=== PATIENT | female | born 1945 | race Caucasian/White ===

== ENCOUNTER → 2024-07-07 12:56 | Outpatient (REF) | payer MEDICARE, BC, SELFPAY | LOC: HWRCS 12:56 | PROVIDERS: ATTENDING PHYSICIAN Internal Medicine Cardiovascular Disease; FAMILY PHYSICIAN Family Medicine | DX: I48.0 Paroxysmal atrial fibrillation (principal) | CPT/HCPCS: 93306 ==

== ENCOUNTER 2025-06-13 14:12 | Inpatient (IN) | payer MEDICARE, BC, SELFPAY ==
[2025-06-10 19:04] LABS: Hematocrit 38.9 % (37.0-47.0); Hemoglobin 12.2 g/dL (12.0-16.0); Mean Corp Hgb Conc. 31.4 g/dL (33.0-37.0); Mean Corpuscular Volume 82.2 fL (81.0-99.0); Nucleated Red Blood Cells % 0 %; Platelet Count 237 10^3/uL (130-400); Red Cell Dist. Width 13.2 % (11.5-14.5)
[2025-06-10 19:20] LABS: ALT (SGPT) 10 U/L (0-35); AST (SGOT) 19 U/L (14-36); Albumin 4.0 g/dl (3.5-5.0); Alkaline Phosphatase 67 U/L (38-126); Blood Urea Nitrogen 26 mg/dl (7-17); Calcium 9.6 mg/dl (8.4-10.2); Carbon Dioxide 31 mmol/L (22-30); Chloride 101 mmol/L (98-107); Glucose 112 mg/dl (70-99); Potassium 4.3 mmol/L (3.5-5.1); Sodium 136 mmol/L (135-145); Total Protein 7.3 g/dl (6.3-8.2); eGFR > 60.00
--- NOTE | 2025-06-10 19:28 | ED.GENMED ---
History of Present Illness
General
Chief Complaint: Musculo-Skeletal Complaint
Source: patient
Exam Limitations: none
Time Seen by Provider: 06/10/25 17:08
Nursing documentation reviewed up to this point in time: agreed with
History of Present Illness
History of Present Illness:
79-year-old female past medical history of A-fib currently on Eliquis, diabetes presenting to the emergency department today with concerns of right knee pain right leg pain has been progressive over the past few but specifically over the past few
days. Has had weakness and difficulty ambulating over the past few years and has had difficulty ambulating while living at home by herself during that time. She has not been able to ambulate whatsoever today due to her knee issue and ongoing lower
extremity weakness.
Past History
Past History
ED Past Medical History: Arrthythmia (Atrial fib), GERD, HTN, Hypercholesterolemia, NIDDM, Hypothyroidism, Psychiatric (Depression) and Other (Hiatal hernia)
ED Past Surgical History: (X 2), Gynecological (D&C), Orthopedic (Right knee surgery, ) and Other (Umbilical hernia, Right breast biopsy, )
Social History
Tobacco: Former smoker
Alcohol: Occasional
Personal:
Living: alone
Review of Systems
Review of Systems
Allergies reviewed?: Yes
All Other Systems: ROS reviewed and negative except as documented in HPI and ROS
Phy Exam
Physical Exam
Physical Exam:
GENERAL: Alert , in no apparent distress
EYE: pupils equal and reactive
NECK: Supple, no significant adenopathy.
ENT: o/p clr, mmm.
CARDIAC: Regular rate and rhythm .
LUNGS: Clear breath sounds bilaterally, no acute respiratory distress, no wheezes/rales/rhonchi
ABDOMEN: Soft, without focal tenderness, no r/g, no cvat
NEUROLOGICAL: Alert and oriented, no focal neuro deficits able to move lower extremities. Difficulty moving against resistance of the lower extremities bilaterally. Normal sensation.
SKIN: Warm and dry, skin intact.
MUSCULOSKELETAL: Mild pain to the area to the lateral posterior aspect of the right knee without overlying skin changes no redness or warmth. No edema, well perfused.
PSYCH: Normal and appropriate interaction.
Course
Orders/Labs/Results
Orders:
Orders
06/10/25 15:45
US Legs, Right [US Periph Venous LOWER Ext RT] Urgent
Comment:
Reason For Exam: pain
06/10/25 18:47
CR Knee- Right 4 Or More View* Urgent
Comment:
Reason For Exam: knee pain
06/10/25 18:51
CBC/With Diff [Complete Blood Count/With Diff] Urgent
CMP [Comprehensive Metabolic Panel] Urgent
Abnormal Lab Results
06/10/25
18:51
MCH 25.8 L pg
(27.0-31.0)
MCHC 31.4 L g/dL
(33.0-37.0)
Absolute Lymphs (auto) 1.0 L 10^3/uL
(1.2-3.4)
Neutrophils % 75.6 H %
(42.2-75.2)
Lymphocytes % 16.7 L %
(20.5-51.1)
Carbon Dioxide 31 H mmol/L
(22-30)
BUN 26 H mg/dl
(7-17)
Glucose 112 H mg/dl
(70-99)
06/10/25 18:51
06/10/25 18:51
Vital Signs
Initial and Last Documented VS:
Initial Vital Signs
Temp Pulse Resp Pulse Ox
97.9 F 60 20 97
06/10/25 15:39 06/10/25 15:39 06/10/25 15:39 06/10/25 15:39
Last Documented Vital Signs
Temp Pulse Resp Pulse Ox
97.9 F 60 20 97
06/10/25 15:39 06/10/25 15:39 06/10/25 15:39 06/10/25 19:30
MDM/Problems Addressed
MDM/Problems Addressed:
79-year-old female presenting to the emergency department today with concerns of increasing difficulty with ambulation unable to ambulate whatsoever at home does live by herself. Typically gets around on a scooter. Also is having worsening pain to
the right posterior knee. Here no redness or warmth able to move at the knee joint. Labs unremarkable no evidence of infection ultrasound without evidence of blood clot. Considering the patient is unable to ambulate safely for discharge home plan
to admit for PT assessment and case management consult.
*Pulse Oximetry
SaO2: 97
Oxygen Mode of Delivery: Room air
Patient hypoxic: no (97)
*Critical Care Note
Total Time (30-74mins, 75-104mins- exclusive of procedures): Not Applicable
ED Attending Note
-
Portions of this chart may have been created with voice recognition software.� Occasional wrong word or��sound alike� substitutions may have occurred due to the inherent limitations of voice recognition software.
Discharge Plan
Departure
Patient Disposition: Admit
Date of Disposition: 06/10/25
Time of Disposition: 19:49
Admit to: Med/Surg
Admit to doctor: Bobbi
Presentation/result/management discussed w/ accepting MD/DO: Hospitalist
Patient with high blood pressure during this ER visit?: No
Condition: Good
Covid-19: Not Applicable
Discharge Problem:
Acute knee pain, Ambulatory dysfunction
Prescriptions:
No Action
sertraline 100 mg Tablet
100 mg PO DAILY
coenzyme Q10 50 mg capsule
50 mg PO DAILY
levothyroxine 125 mcg Tablet
125 mcg PO DAILY
nitrofurantoin macrocrystal 100 mg capsule
100 mg PO BID
lovastatin 20 mg Tablet
20 mg PO QPM
oxybutynin chloride 5 mg Tablet
5 mg PO BID
Linzess 145 mcg Capsule
145 mcg PO DAILY
Eliquis 5 mg Tablet
5 mg PO BID
PreserVision AREDS-2 250-90-40-1 mg Capsule
1 tab PO DAILY
lidocaine [Aspercreme (lidocaine)] 4 % Adhesive Patch,Medicated
1 patch topical DAILY Qty: 0 0RF
Insulin Glargine Lantus [Lantus] 15 UNITS
Subcutaneous Insulin Syringe [Syringe-Insulin] 0 UNIT
As Directed mls/hr SC DAILY
Ordered By: Rodo Fleming MD
Last Taken: Unknown
insulin aspart U-100 [Novolog FlexPen U-100 Insulin] 100 unit/mL (3 mL) Insulin Pen
3 units SC AC Qty: 0 0RF
sennosides [senna] 8.6 mg Tablet
17.2 mg PO BID Qty: 0 0RF
metoprolol succinate 25 mg Tablet Extended Release 24 Hr
25 mg PO DAILY Qty: 0 0RF
acetaminophen [Pain Reliever ES(acetaminophn)] 500 mg Tablet
1,000 mg PO Q8H Qty: 0 0RF
lisinopril 20 mg Tablet
20 mg PO DAILY Qty: 0 0RF
docusate sodium 100 mg Capsule
100 mg PO BID Qty: 0 0RF
mirtazapine 7.5 mg Tablet
7.5 mg PO HS Qty: 0 0RF
pantoprazole 40 mg Tablet,Delayed Release (Dr/Ec)
40 mg PO BID Qty: 0 0RF
polyethylene glycol 3350 [Miralax] 17 gram powder in packet
17 g PO DAILY Qty: 14 0RF
Referrals:
David Preston DO [Family Provider, Family Practice]
Interventions
Interventions:
*Risk Screen - Suicide Last Done: 06/10/25 15:39
*General Assessment Last Done: 06/10/25 15:39
*Neglect/Abuse Screening Last Done: 06/10/25 15:39
ED-Musculoskeletal Assessment Last Done: 06/10/25 16:40
Discharge Date and Time
Print Language: SERBIAN
--- NOTE | 2025-06-10 19:53 | HPS.HSE ---
Addendum entered and electronically signed by Rhiannon Perkins MD 06/10/25 21:03:
This is an addendum to H&P written by Hermelinda Hercules on 06/10/2025. �Patient seen and examined independently with FREIGHT ROUTER.
79-year-old female past medical history of paroxysmal atrial fibrillation, obstructive sleep apnea, hypothyroidism, diabetes, chronic constipation, hypertension, hyperlipidemia, depression, hearing impairment, obesity, presenting with right knee
pain and right leg pain progressive after past few days. �Weakness and difficulty ambulating.
Labs unremarkable.
Right knee x-ray shows no acute fracture or dislocation. �Severe tricompartment osteoarthritis with marked joint space narrowing. �Small suprapatellar joint effusion. �Venous ultrasound shows no evidence of DVT. 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
x 1.1 x 1.8 cm.
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 �Tylenol for pain, PT OT, outpatient follow-up with orthopedics. Also with likely trigger finger of right third finger. Check finger xray.
Original Note:
Family Physician
-
Family Physician: David Preston
Chief Complaint
-
right posterior thigh pain
History of Present Illness
Patient is a 79-year-old female with past medical history significant for hypertension, hyperlipidemia, hypothyroidism, permanent atrial fibrillation, chronic kidney disease IIIa, type 2 diabetes, GERD, depression, chronic constipation and
obstructive sleep apnea who presented to [facility] for evaluation of right posterior thigh pain. Patient reports that pain started approximately 1-1.5 weeks ago, she denies any falls or trauma to leg. Patient states she lives alone and generally is
able to transfer from bed/chair to electric scooter without assistance. Over past 2 days she has been unable to transfer independently related to increased pain and discomfort.
Medical History
Past Medical History
Past Medical History: Reports Other
Additional Past Medical History:
hypertension
hyperlipidemia
hypothyroidism
permanent atrial fibrillation
chronic kidney disease IIIa
type 2 diabetes
GERD
depression
chronic constipation
obstructive sleep apnea
Past Surgical History: Reports Other
Additional Past Surgical History:
hernia repair, umbilical(1948,1978) 12/16/2012
Caesarean SectionX2() 08/27/2012
Right Knee Surgery, Arthroscopic() 08/27/2012
meniscus tear repair(1981) 12/16/2012
Hernia repair, inguinal(1979) 12/16/2012
sebaceous cyst removed behind left ear(1990) 12/16/2012
Right Breast Biopsy() 08/27/2012
cardiac catheterization
D and C
Social History
Tobacco: Non-smoker
Alcohol: Occasional
Drug: None
Living: Alone
Family History
Family History: Not pertinent
Allergies / Home Medications
Allergies reflects when Allergies were last updated in [employer].
Home Medications with original date entered in [employer]
Allergy/Medication List:
Allergies
Allergy/AdvReac Type Severity Reaction Status Date / Time
Cephalosporins Allergy Unknown Hives Verified 06/10/25 15:45
Latex, Natural Rubber Allergy Unknown Rash Verified 06/10/25 15:45
paroxetine Allergy Unknown Unknown Verified 06/10/25 15:45
methocarbamol (From Robaxin) Allergy Unknown Verified 06/10/25 15:45
naproxen Allergy Unknown Verified 06/10/25 15:45
codeine AdvReac Unknown Nausea / Verified 06/10/25 15:45
Vomiting
Home Medications
apixaban 5 mg tablet (Eliquis) 5 mg PO BID Blood clot prevention/tx 04/08/22
levothyroxine 125 mcg tablet 125 mcg PO DAILY Thyroid 04/08/22
linaclotide 145 mcg capsule (Linzess) 145 mcg PO DAILY Gastrointestinal issue 04/08/22
lovastatin 20 mg tablet 20 mg PO QPM High cholesterol 04/08/22
oxybutynin chloride 5 mg tablet 5 mg PO BID Urinary issue 04/08/22
sertraline 100 mg tablet 100 mg PO DAILY Mental Health/Anxiety 04/08/22
vit C 250 mg-vit E 90 mg-zinc 40 mg-copper 1 [id number] capsule (PreserVision AREDS-2) 1 tab PO DAILY Supplement 04/08/22
insulin aspart U-100 100 unit/mL (3 mL) subcutaneous pen (Novolog FlexPen U-100 Insulin aspart) 3 units (0.03 mL) SC AC #0 mL 04/13/22
acetaminophen 500 mg tablet (Pain Reliever Extra Strength (acetaminophen)) 1,000 mg PO Q8HPRN PRN mild pain 06/10/25
hydrochlorothiazide 25 mg tablet 25 mg PO DAILY Fluid Retention/Swelling 06/10/25
lidocaine 4 % topical patch (Aspercreme (lidocaine)) 1 patch topical DAILY behind right thigh 06/10/25
lisinopril 40 mg tablet 40 mg PO DAILY Blood Pressure 06/10/25
metoprolol succinate 25 mg tablet,extended release 24 hr 25 mg PO BID Heart Disease/Condition 06/10/25
pantoprazole 40 mg tablet,delayed release 40 mg PO BID Gastrointestinal Issue 06/10/25
polyethylene glycol 3350 17 gram oral powder packet (Miralax) 17 g PO DAILYPRN PRN constipation 06/10/25
tirzepatide 5 mg/0.5 mL subcutaneous pen injector (Mounjaro) 5 mg SC IRBY Weight Gain 06/10/25
vitamin D3 125 mcg (5,000 unit)-vitamin K2 90 mcg capsule 1 cap PO DAILY Supplement 06/10/25
Review of Systems
-
History Source: Patient
Constitutional: Denies Fever or Chills
EENT: Denies Sore Throat
Respiratory: Denies Cough, Hemoptysis or Trouble Breathing
Cardiac: Denies Chest Pain, Diaphoresis, Palpitations or Syncope
Abdomen/GI: Denies Abdominal Pain, Nausea, Vomiting or Diarrhea
: Denies Dysuria, Frequency or Urgency
Musculoskeletal: Reports Other (right posterior thigh pain, decreased ability to transfer independently )
Skin: Denies Rash
Neurological: Denies Dizzy, Headache, Weakness or Numbness
Endocrine: Denies Polyuria or Polydipsia
Physical Exam
Vital Signs
Vital Signs
Temp Pulse Resp Pulse Ox
97.9 F 60 20 97
06/10/25 15:39 06/10/25 15:39 06/10/25 15:39 06/10/25 19:30
Physical Exam
General: Well Developed, Well Nourished, No Apparent Distress, Comfortable, Conversant and Obese
HEENT: NormoCephalic, Moist mucous membranes, PERRLA, Nose Appears Normal and Ears Appear Normal
Respiratory: Clear and Non Labored Respirations; No Wheezes, Rales or Rhonchi
Cardiac: Irregular Rhythm; No Murmur or Peripheral Edema
GI: Soft, Non Tender, Non Distended and Normal Bowel Sounds
Musculoskeletal: No Clubbing, No Cyanosis and No Edema
Skin: Warm and IV/Catheter Site
Neuro: Awake and AO x 3
Psych: Calm and Intact Judgment/Insight
Laboratory Results
-
06/10/25 18:51
06/10/25 18:51
Laboratory Results
Total Bilirubin 0.7 mg/dl (0.2-1.3) 06/10/25 18:51
AST 19 U/L (14-36) 06/10/25 18:51
ALT 10 U/L (0-35) 06/10/25 18:51
Alkaline Phosphatase 67 U/L (38-126) 06/10/25 18:51
Data Reviewed
-
Diagnostic Radiology: Report Reviewed by me (Rt knee: No acute fracture or dislocation. Severe tricompartmental osteoarthrosis with marked joint space narrowing in all 3 compartments and marginal osteophytes. Small suprapatellar joint effusion.
Vascular calcifications.)
Ultrasound: Report Reviewed by me (RLE tayler venous: No sonographic evidence for right lower extremity deep venous thrombosis.)
Lab Data: Labs Reviewed by me
Impression/Plan
-
IMPRESSION/PLAN:
#right posterior thigh pain 2/2 DVT vs. osteoarthritis vs. injury
#ambulatory dysfunction likely 2/2 deconditioning
right posterior thigh pain for 1.5-2weeks, now decreased ability to transfer independently
labs unremarkable
right knee x-ray: No acute fracture or dislocation. Severe tricompartmental osteoarthrosis with marked joint space narrowing in all 3 compartments and marginal osteophytes. Small suprapatellar joint effusion. Vascular calcifications.
RLE peripheral venous US: No sonographic evidence for right lower extremity deep venous thrombosis.
- Admit to med/surg
- Consult PT/OT
- Consult case management
- follow up with orthopedics out patient
#hypertension
- continue HCTZ and lisinopril
#hyperlipidemia
- continue lovastatin
#hypothyroidism
- continue levothyroxine
#permanent atrial fibrillation
- continue Eliquis and metoprolol
#chronic kidney disease IIIa
#type 2 diabetes
- AccuCheck AC & HS
- SSI
- continue aspart 3 units AC
- continue tirzepatide upon discharge
#GERD
- continue pantoprazole
#depression
- continue sertraline
#chronic constipation
- continue Linzess
#obstructive sleep apnea
Code status: full code
DVT prophylaxis: Eliquis
[2025-06-10 20:20] VITALS: BP 124/52
[2025-06-10 21:50] VITALS: BP 160/59; BMI 41.0
[2025-06-10 22:15] LABS: Glucose - Point of Care 97 mg/dl (70-99)
[2025-06-10 22:47] VITALS: BMI 41.0
[2025-06-10 23:00] VITALS: BP 176/69
--- NOTE | 2025-06-11 01:20 | PTCARENOTE ---
Pt arrived to unit via stretcher. Pt transferred from stretcher to bed. Pt oriented to room. Pt AAOx3, VSS. Call rivas within reach, plan of care ongoing.
[2025-06-11] MEDS: TYLENOL 1000 MG PO (02:01)
[2025-06-11] MEDS: SYNTHROID 125 MCG PO (05:40)
[2025-06-11 07:00] VITALS: BP 145/64
[2025-06-11 07:58] LABS: Glucose - Point of Care 89 mg/dl (70-99)
[2025-06-11 08:30] VITALS: BMI 41.0
[2025-06-11] MEDS: NOVOLOG FLEXPEN-LOW RESISTANCE SC ×2 (09:31→17:54)
[2025-06-11] MEDS: PROTONIX 40 MG PO ×2 (09:36→20:33)
[2025-06-11] MEDS: DITROPAN 5 MG PO (09:37)
[2025-06-11] MEDS: ELIQUIS 5 MG PO ×2 (09:37→20:33)
[2025-06-11] MEDS: ZESTRIL 40 MG PO (09:37)
[2025-06-11] MEDS: ZOLOFT 100 MG PO (09:37)
[2025-06-11] MEDS: TOPROL XL 25 MG PO ×2 (09:37→20:34)
[2025-06-11] MEDS: ORETIC 25 MG PO (09:37)
[2025-06-11] MEDS: OCUVITE SOFTGEL 1 CAP PO (09:37)
[2025-06-11] MEDS: NOVOLOG FLEXPEN 3 UNITS SC ×3 (09:38→17:59)
--- NOTE | 2025-06-11 10:50 | W.PN.HOSP.TC ---
Today's Communication/Plan
-
d/c
Assessment / Plan
Assessment / Plan
Gen: NAD, AAOx3.
Eyes: EOMI, PERRLA, no scleral icterus.
Neck: supple.
CV: RRR, +S1/S2, no m/r/g.
Resp: CTAB, no rales, wheezes, or rhonchi.
Abd: +BS, soft, NT, ND
Skin: No rashes.
MSK: R knee without effusion, induration, erythema, or warmth. Popliteal fossa without TTP.
Neuro: CN 2-12 intact, non-focal.
Psych: Normal mood and affect.
R knee x-ray: No acute fracture or dislocation. Severe tricompartmental osteoarthrosis with marked joint space narrowing in all 3 compartments and marginal osteophytes. Small suprapatellar joint effusion. Vascular calcifications.
RLE peripheral venous U/S: No sonographic evidence for right lower extremity deep venous thrombosis.
R hand Xray: No acute fracture or dislocation. The joint spaces are maintained. The soft tissues are unremarkable.
R posterior thigh pain:
-likely due to severe tricompartmental osteoarthrosis
-with resulting ambulatory dysfxn
-PT/OT
-pain control
Other problems:
Morbid obesity due to excess calories: Encourage weight loss, affects all aspects of care
Essential HTN: cont BB/ACEi/HCTZ
HLD: cont statin
Hypothyroidism: cont Levoxyl
Permanent atrial fibrillation: cont BB/Eliquis
CKD3a
DM2: SSI/accuchecks
GERD: cont PPI
Depression: cont Zoloft
Chronic constipation:cont Linzess
ANNE
FULL/Eliquis
No indication for continued hospitalization. Medically cleared for d/c. Case management aware.
Anticipated Discharge: Today
Subjective/Interval History
-
Date of Service: June 11, 2025
No new complaints.
Objective Data
-
Vital Signs:
Vital Signs
Temp Pulse Resp BP Pulse Ox
97.7 F 59 18 145/64 95
06/11/25 07:00 06/11/25 07:00 06/11/25 07:00 06/11/25 07:00 06/11/25 07:00
I&O
06/10/25 06/11/25 06/12/25
06:59 06:59 06:59
Intake Total 480 / 480
Balance 480 / 480
[2025-06-11 12:13] LABS: Glycohemoglobin (HgbA1c) 6.9 % (4.0-5.9)
[2025-06-11 12:49] VITALS: BP 147/69; PULSE 83; O2SAT 95
[2025-06-11 12:53] LABS: Glucose - Point of Care 169 mg/dl (70-99)
[2025-06-11] MEDS: NOVOLOG FLEXPEN-LOW RESISTANCE 1 UNITS SC (13:35)
--- NOTE | 2025-06-11 15:44 | CM ---
Alert awake patient who lives independently in a 1 story home with a ramp to enter. She uses a scooter .PT indicates snf . Offered Snf to patient . Pt will need auth.
[facility]
PC Dr Preston
PLAN DC planning on going
[2025-06-11 16:25] VITALS: BP 186/83
[2025-06-11 17:24] LABS: Glucose - Point of Care 138 mg/dl (70-99)
[2025-06-11] MEDS: LIPITOR 10 MG PO (17:59)
[2025-06-11 21:41] LABS: Glucose - Point of Care 125 mg/dl (70-99)
[2025-06-11 23:10] VITALS: BP 141/57
[2025-06-12] MEDS: SYNTHROID 125 MCG PO (06:23)
[2025-06-12 07:00] VITALS: BP 123/50
[2025-06-12 07:59] LABS: Glucose - Point of Care 118 mg/dl (70-99)
[2025-06-12] MEDS: NOVOLOG FLEXPEN-LOW RESISTANCE SC (08:12)
[2025-06-12] MEDS: OCUVITE SOFTGEL 1 CAP PO (08:14)
[2025-06-12] MEDS: PROTONIX 40 MG PO ×2 (08:14→20:20)
[2025-06-12] MEDS: TOPROL XL 25 MG PO (08:14)
[2025-06-12] MEDS: ZESTRIL 40 MG PO (08:14)
[2025-06-12] MEDS: ELIQUIS 5 MG PO ×2 (08:14→20:20)
[2025-06-12] MEDS: ORETIC 25 MG PO (08:15)
[2025-06-12] MEDS: DITROPAN 5 MG PO (08:15)
[2025-06-12] MEDS: ZOLOFT 100 MG PO (08:15)
[2025-06-12] MEDS: NOVOLOG FLEXPEN 3 UNITS SC ×3 (08:15→17:21)
--- NOTE | 2025-06-12 08:25 | W.PN.HOSP.TC ---
Today's Communication/Plan
-
see plan
Assessment / Plan
Assessment / Plan
Gen: NAD, AAOx3.
Eyes: EOMI, PERRLA, no scleral icterus.
Neck: supple.
CV: remains RRR, +S1/S2, no m/r/g.
Resp: remains CTAB, no rales, wheezes, or rhonchi.
Abd: +BS, soft, NT, ND
Skin: No rashes.
MSK: R knee without effusion, induration, erythema, or warmth.
Neuro: CN 2-12 intact, non-focal.
Psych: Normal mood and affect.
R knee x-ray: No acute fracture or dislocation. Severe tricompartmental osteoarthrosis with marked joint space narrowing in all 3 compartments and marginal osteophytes. Small suprapatellar joint effusion. Vascular calcifications.
RLE peripheral venous U/S: No sonographic evidence for right lower extremity deep venous thrombosis.
R hand Xray: No acute fracture or dislocation. The joint spaces are maintained. The soft tissues are unremarkable.
R posterior thigh pain:
-likely due to severe tricompartmental osteoarthrosis
-with resulting ambulatory dysfxn
-PT/OT
-pain control
Other problems:
Morbid obesity due to excess calories: Encourage weight loss, affects all aspects of care
Essential HTN: cont BB/ACEi/HCTZ
HLD: cont statin
Hypothyroidism: cont Levoxyl
Permanent atrial fibrillation: cont BB/Eliquis
CKD3a
DM2: a1c 6.9%, SSI/accuchecks
GERD: cont PPI
Depression: cont Zoloft
Chronic constipation:cont Linzess
ANNE
FULL/Eliquis
Remains medically cleared for d/c since . Case management aware.
Anticipated Discharge: Today
Subjective/Interval History
-
Date of Service: June 12, 2025
No new complaints. Still c/o posterior R knee pain (popliteal fossa).
Objective Data
-
Vital Signs:
Vital Signs
Temp Pulse Resp BP Pulse Ox
98 F 60 17 123/50 97
06/12/25 07:00 06/12/25 07:00 06/12/25 07:00 06/12/25 07:00 06/12/25 07:00
I&O
06/11/25 06/12/25 06/13/25
06:59 06:59 06:59
Intake Total 480 / 480 960 / 960
Balance 480 / 480 960 / 960
--- NOTE | 2025-06-12 10:34 | CM ---
Addendum entered by Summer Erickson 06/12/25 12:30:
Per FEP, pt's Medicare is primary payor. CM called [facility] ([phone]) to determine if this patient is eligible for the [employer] waiver. VM left requesting a call back regarding pt's eligibility for SNF waiver.
Original Note:
Call placed to [facility] to determine SNF benefits available. WINNIE spoke with Teo Jenkins Ref#[id number] who advised that patient does not have a skilled benefit. Call placed to insurance again to discuss eligibility for FEP Case Management
program; WINNIE spoke with Melissa Rockwell Ref# [id number]. Melissa is not sure that the FEP Case Management team is working today, but will send request for expedited review with notification of pt being medically cleared for discharge today. Determination
could take up to 72 hours for expedited review.
Plan: CM will continue to follow for discharge to SNF pending FEP approval.
[2025-06-12 11:58] LABS: Glucose - Point of Care 160 mg/dl (70-99)
[2025-06-12] MEDS: NOVOLOG FLEXPEN-LOW RESISTANCE 1 UNITS SC ×2 (12:24→17:21)
[2025-06-12 14:12] VITALS: BP 135/67; PULSE 58; O2SAT 95
[2025-06-12 15:44] VITALS: BP 127/53
[2025-06-12 17:01] LABS: Glucose - Point of Care 175 mg/dl (70-99)
[2025-06-12] MEDS: LIPITOR 10 MG PO (17:20)
[2025-06-12] MEDS: TOPROL XL PO (21:51)
[2025-06-12 23:29] VITALS: BP 139/98
[2025-06-13] MEDS: SYNTHROID 125 MCG PO (05:19)
[2025-06-13 07:00] VITALS: BP 128/53
--- NOTE | 2025-06-13 08:12 | W.PN.HOSP.TC ---
Today's Communication/Plan
-
see bold
Assessment / Plan
Assessment / Plan
Gen: NAD, AAOx3.
Eyes: EOMI, PERRLA, no scleral icterus.
Neck: supple.
CV: continues to remain RRR, +S1/S2, no m/r/g.
Resp: continues to remain CTAB, no rales, wheezes, or rhonchi.
Abd: +BS, soft, NT, ND
Skin: No rashes.
MSK: remains R knee without effusion, induration, erythema, or warmth.
Neuro: CN 2-12 intact, non-focal.
Psych: Normal mood and affect.
R knee x-ray: No acute fracture or dislocation. Severe tricompartmental osteoarthrosis with marked joint space narrowing in all 3 compartments and marginal osteophytes. Small suprapatellar joint effusion. Vascular calcifications.
RLE peripheral venous U/S: No sonographic evidence for right lower extremity deep venous thrombosis.
R hand Xray: No acute fracture or dislocation. The joint spaces are maintained. The soft tissues are unremarkable.
R posterior thigh pain:
-likely due to severe tricompartmental osteoarthrosis
-with resulting ambulatory dysfxn
-PT/OT
-pain control
Other problems:
Morbid obesity due to excess calories: Encourage weight loss, affects all aspects of care
Essential HTN: cont BB/ACEi/HCTZ
HLD: cont statin
Hypothyroidism: cont Levoxyl
Permanent atrial fibrillation: cont BB/Eliquis
CKD3a
DM2: a1c 6.9%, SSI/accuchecks
GERD: cont PPI
Depression: cont Zoloft
Chronic constipation:cont Linzess
ANNE
FULL/Eliquis
Continues to remain medically cleared for d/c since . Case management aware. Discussed with WINNIE Pennington at 0850.
Anticipated Discharge: Today
Subjective/Interval History
-
Date of Service: June 13, 2025
No new complaints.
Objective Data
-
Vital Signs:
Vital Signs
Temp Pulse Resp BP Pulse Ox
97.3 F 56 18 128/53 96
06/13/25 07:00 06/13/25 07:00 06/13/25 07:00 06/13/25 07:00 06/13/25 07:00
I&O
06/12/25 06/13/25 06/14/25
06:59 06:59 06:59
Intake Total 960 / 960
Balance 960 / 960
[2025-06-13 08:14] LABS: Glucose - Point of Care 121 mg/dl (70-99)
[2025-06-13] MEDS: NOVOLOG FLEXPEN-LOW RESISTANCE SC ×2 (08:19→12:35)
[2025-06-13] MEDS: OCUVITE SOFTGEL 1 CAP PO (08:39)
[2025-06-13] MEDS: ORETIC 25 MG PO (08:39)
[2025-06-13] MEDS: DITROPAN 5 MG PO (08:39)
[2025-06-13] MEDS: PROTONIX 40 MG PO ×2 (08:40→20:47)
[2025-06-13] MEDS: ZESTRIL 40 MG PO (08:41)
[2025-06-13] MEDS: ZOLOFT 100 MG PO (08:41)
[2025-06-13] MEDS: ELIQUIS 5 MG PO ×2 (08:41→20:47)
[2025-06-13] MEDS: TOPROL XL PO (08:42)
[2025-06-13] MEDS: NOVOLOG FLEXPEN 3 UNITS SC ×3 (09:15→18:01)
--- NOTE | 2025-06-13 12:15 | W.DCSUMMARY ---
Discharge Summary
Discharge Data
Date of Admission: 06/10/25
Date of Discharge: 06/13/25
-
Pending Results: No
Hospital Course
Primary diagnoses:
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
Right Alcocer's cyst
Secondary diagnoses:
Morbid obesity due to excess calories
Essential hypertension
Hyperlipidemia
Hypothyroidism
Permanent atrial fibrillation
Chronic kidney disease 3a
Type 2 diabetes mellitus
Gastroesophageal reflux disease
Depression
Chronic constipation
Obstructive sleep apnea
Consultants:
None
Imaging:
R knee x-ray: No acute fracture or dislocation. Severe tricompartmental osteoarthrosis with marked joint space narrowing in all 3 compartments and marginal osteophytes. Small suprapatellar joint effusion. Vascular calcifications.
RLE peripheral venous U/S: No sonographic evidence for right lower extremity deep venous thrombosis.
R hand Xray: No acute fracture or dislocation. The joint spaces are maintained. The soft tissues are unremarkable.
Hospital course: 79-year-old female presented with a chief complaint of right knee and leg pain as outlined in the H&P done on admission. Her workup was unremarkable, imaging above. Her pain will was due to severe tricompartmental osteoarthritis
as well as Alcocer's cyst of the right knee. She was seen by physical therapy and Occupational Therapy. She was treated supportively. She is being discharged in medically stable condition at this time.
Total time spent on d/c = 31 min. This included today's physical exam, progress note, review of laboratory and diagnostic data, preparation of discharge documents and prescriptions, and discussions about the pt's hospital course and discharge plan
with the patient and other biomedical engineering technician involved in the patient's care.
Discharge Plan
-
Patient Disposition: Home with Home Care
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
Condition: Fair
Diet: Diabetic, Carb Controlled
Activity: As tolerated
Driving Restrictions: Not until seen by your Dr
Other Services: VN, PT and OT
Referrals:
David Preston, DO [Family Provider, Family Practice] - in less than 1 week
Prescriptions:
Continued
sertraline 100 mg Tablet
100 mg PO DAILY
levothyroxine 125 mcg Tablet
125 mcg PO DAILY
lovastatin 20 mg Tablet
20 mg PO QPM
oxybutynin chloride 5 mg Tablet
5 mg PO DAILY
Linzess 145 mcg Capsule
145 mcg PO DAILY
Eliquis 5 mg Tablet
5 mg PO BID
vit C,H-Jx-dtbri-lutein-zeaxan 250-90-40-1 mg Capsule
1 tab PO DAILY
insulin aspart U-100 [Novolog FlexPen U-100 Insulin] 100 unit/mL (3 mL) Insulin Pen
3 units SC AC Qty: 0 0RF
hydrochlorothiazide 25 mg Tablet
25 mg PO DAILY
lisinopril 40 mg Tablet
40 mg PO DAILY
Mounjaro 5 mg/0.5 mL Pen Injector
5 mg SC IRBY
vitamin D3-vitamin K2 125-90 mcg Capsule
1 cap PO DAILY
lidocaine [Aspercreme (lidocaine)] 4 % adhesive patch,medicated
1 patch topical DAILY
polyethylene glycol 3350 [Miralax] 17 gram powder in packet
17 g PO DAILYPRN PRN (Reason: constipation)
acetaminophen [Pain Reliever ES(acetaminophn)] 500 mg tablet
1,000 mg PO Q8HPRN PRN (Reason: mild pain)
pantoprazole 40 mg tablet,delayed release (DR/EC)
40 mg PO BID
metoprolol succinate 25 mg tablet extended release 24 hr
25 mg PO BID
Discharge Orders:
Discharge Patient (As Directed); Ordered 06/13/25
Ordered By: Graham Najera
Discharge Date and Time
Print Language: TAMAZIGHT
[2025-06-13 12:32] LABS: Glucose - Point of Care 142 mg/dl (70-99)
--- NOTE | 2025-06-13 12:41 | CM ---
Addendum entered by Britni Pennington 06/13/25 14:30:
Patient has switched to inpatient due to medical needs, skilled options reviewed and patient has selected [facility], referral sent to [facility].
Original Note:
marketing manager health communications reviewed patient's chart and met with patient and spoke with patient's daughter by phone, patient was seen by physical therapy and skilled placement recommended, patient was admitted under observation and does not qualify for skilled
placement under Medicare, [employer] Waiver was also explored and patient is not part of [employer] Waiver program, only option for patient is skilled placement private pay, case managers reviewed [facility] as possible option and discussed cost of
private pay. Patient states she cannot afford to private pay for a facility, therefore plan is to home with [facility], list of private caregivers provided and referral sent to [facility] to Options/Waiver program, patient's daughter
Kelsi updated.
Plan; Home with VN, and list of private caregivers.
--- NOTE | 2025-06-13 13:32 | PTCARENOTE ---
Physical therapy went to re-eval pt prior to being discharged. PT found pt's HR to be 147. made aware.
--- NOTE | 2025-06-13 14:12 | W.PN.UPDATE ---
Update Note
Progress Note Update
Called by RN because patient was tachycardic at 147 when PT went to work with her. The patient's beta-bentley has not been given recently due to heart rates in the 50s. Patient evaluated bedside. Denies any chest pain or shortness of breath.
Heart rate as high as 151 despite Valsalva for 20 seconds as well as left-sided carotid massage. Restart patient's Toprol-XL. Will hold discharge at this time and change the patient's status to inpatient. Will need to monitor the patient's heart
rate over the next 24 to 48 hours to ensure medical stability for discharge.
[2025-06-13 15:00] VITALS: BP 134/73
[2025-06-13] MEDS: TOPROL XL 25 MG PO ×2 (15:01→20:47)
[2025-06-13 16:39] LABS: Glucose - Point of Care 176 mg/dl (70-99)
[2025-06-13] MEDS: NOVOLOG FLEXPEN-LOW RESISTANCE 1 UNITS SC (18:02)
[2025-06-13] MEDS: LIPITOR 10 MG PO (19:01)
[2025-06-13 20:42] VITALS: BP 135/51
[2025-06-13] MEDS: TYLENOL 1000 MG PO (20:48)
[2025-06-13 22:04] LABS: Glucose - Point of Care 154 mg/dl (70-99)
[2025-06-13 23:00] VITALS: BP 130/72
[2025-06-14 03:06] VITALS: BP 133/46
[2025-06-14] MEDS: SYNTHROID 125 MCG PO (06:00)
[2025-06-14 06:09] LABS: Hematocrit 36.0 % (37.0-47.0); Hemoglobin 11.2 g/dL (12.0-16.0); Mean Corp Hgb Conc. 31.1 g/dL (33.0-37.0); Mean Corpuscular Volume 82.9 fL (81.0-99.0); Platelet Count 238 10^3/uL (130-400); Red Cell Dist. Width 13.1 % (11.5-14.5)
[2025-06-14 06:31] LABS: Blood Urea Nitrogen 36 mg/dl (7-17); Calcium 9.4 mg/dl (8.4-10.2); Carbon Dioxide 30 mmol/L (22-30); Chloride 103 mmol/L (98-107); Estimated Creatinine Clearance 41 ml/min; Glucose 133 mg/dl (70-99); Magnesium 1.7 mg/dl (1.6-2.3); Potassium 4.1 mmol/L (3.5-5.1); Sodium 136 mmol/L (135-145); eGFR 51.11
[2025-06-14 07:00] VITALS: BP 159/61
[2025-06-14 07:56] LABS: Glucose - Point of Care 119 mg/dl (70-99)
[2025-06-14] MEDS: NOVOLOG FLEXPEN-LOW RESISTANCE SC ×2 (08:13→12:39)
[2025-06-14] MEDS: PROTONIX 40 MG PO ×2 (08:45→21:07)
[2025-06-14] MEDS: ZESTRIL 40 MG PO (08:45)
[2025-06-14] MEDS: DITROPAN 5 MG PO (08:45)
[2025-06-14] MEDS: ORETIC 25 MG PO (08:45)
[2025-06-14] MEDS: ZOLOFT 100 MG PO (08:45)
[2025-06-14] MEDS: TOPROL XL 25 MG PO ×2 (08:45→21:05)
[2025-06-14] MEDS: ELIQUIS 5 MG PO ×2 (08:46→21:06)
[2025-06-14] MEDS: OCUVITE SOFTGEL 1 CAP PO (08:46)
--- NOTE | 2025-06-14 09:04 | CM ---
Plan is skilled placement at [facility].
Plan; Skilled placement at [facility]
[2025-06-14] MEDS: NOVOLOG FLEXPEN 3 UNITS SC ×3 (09:23→17:35)
--- NOTE | 2025-06-14 09:46 | W.PN.HOSP.TC ---
Today's Communication/Plan
-
see plan
Assessment / Plan
Assessment / Plan
Gen: NAD, AAOx3.
Eyes: EOMI, PERRLA, no scleral icterus.
Neck: supple.
CV: sourav, reg rhythm, +S1/S2, no m/r/g.
Resp: CTAB, no rales, wheezes, or rhonchi.
Abd: remains +BS, soft, NT, ND
Skin: No rashes.
MSK: continues to remain R knee without effusion, induration, erythema, or warmth.
Neuro: CN 2-12 intact, non-focal.
Psych: Normal mood and affect.
R knee x-ray: No acute fracture or dislocation. Severe tricompartmental osteoarthrosis with marked joint space narrowing in all 3 compartments and marginal osteophytes. Small suprapatellar joint effusion. Vascular calcifications.
RLE peripheral venous U/S: No sonographic evidence for right lower extremity deep venous thrombosis.
R hand Xray: No acute fracture or dislocation. The joint spaces are maintained. The soft tissues are unremarkable.
Permanent atrial fibrillation:
-note, pt had missed doses of BB and went into SVT 1129PM
-BB resumed, HR now controlled
-cont Eliquis
-cont to monitor on tele through 12/1AM
-check echo 12/1AM
R posterior thigh pain:
-likely due to severe tricompartmental osteoarthrosis
-with resulting ambulatory dysfxn
-PT/OT
-pain control
Other problems:
Morbid obesity due to excess calories: Encourage weight loss, affects all aspects of care
Essential HTN: cont BB/ACEi/HCTZ
HLD: cont statin
Hypothyroidism: cont Levoxyl
CKD3a
DM2: a1c 6.9%, SSI/accuchecks
GERD: cont PPI
Depression: cont Zoloft
Chronic constipation:cont Linzess
NANE
FULL/Eliquis
Anticipated Discharge: 24 - 48 hours
Subjective/Interval History
-
Date of Service: June 14, 2025
No new complaints. Still with knee pain that was 'throbbing' yesterday evening.
Objective Data
-
Labs:
Laboratory Results
06/14/25
05:46
WBC 7.1
Hgb 11.2 L
Hct 36.0 L
Plt Count 238
Sodium 136
Potassium 4.1
Chloride 103
Carbon Dioxide 30
BUN 36 H
Creatinine 1.1 H
Glucose 133 H
Calcium 9.4
Vital Signs:
Vital Signs
Temp Pulse Resp BP Pulse Ox
97.6 F 53 17 159/61 97
06/14/25 07:00 06/14/25 08:45 06/14/25 07:00 06/14/25 08:45 06/14/25 07:00
I&O
06/13/25 06/14/25 06/15/25
06:59 06:59 06:59
Intake Total 1200 / 1200
Balance 1200 / 1200
[2025-06-14 11:00] VITALS: BP 134/68
[2025-06-14 12:37] LABS: Glucose - Point of Care 125 mg/dl (70-99)
[2025-06-14 15:00] VITALS: BP 165/60
[2025-06-14 16:41] LABS: Glucose - Point of Care 162 mg/dl (70-99)
[2025-06-14] MEDS: LIPITOR 10 MG PO (17:28)
[2025-06-14] MEDS: NOVOLOG FLEXPEN-LOW RESISTANCE 1 UNITS SC (17:36)
[2025-06-14 19:00] VITALS: BP 154/61
[2025-06-14 21:08] LABS: Glucose - Point of Care 139 mg/dl (70-99)
[2025-06-14 23:00] VITALS: BP 129/49
[2025-06-15 03:00] VITALS: BP 115/47
[2025-06-15] MEDS: SYNTHROID 125 MCG PO (05:20)
[2025-06-15 07:00] VITALS: BP 142/55
[2025-06-15 07:52] LABS: Glucose - Point of Care 125 mg/dl (70-99)
[2025-06-15] MEDS: NOVOLOG FLEXPEN-LOW RESISTANCE SC (08:03)
[2025-06-15] MEDS: PROTONIX 40 MG PO ×2 (09:01→20:23)
[2025-06-15] MEDS: ELIQUIS 5 MG PO ×2 (09:02→20:22)
[2025-06-15] MEDS: ZESTRIL 40 MG PO (09:02)
[2025-06-15] MEDS: TOPROL XL 25 MG PO ×2 (09:02→20:22)
[2025-06-15] MEDS: OCUVITE SOFTGEL 1 CAP PO (09:02)
[2025-06-15] MEDS: ORETIC 25 MG PO (09:03)
[2025-06-15] MEDS: DITROPAN 5 MG PO (09:03)
[2025-06-15] MEDS: ZOLOFT 100 MG PO (09:03)
[2025-06-15 09:57] LABS: Blood Urea Nitrogen 30 mg/dl (7-17); Calcium 9.3 mg/dl (8.4-10.2); Carbon Dioxide 30 mmol/L (22-30); Chloride 102 mmol/L (98-107); Estimated Creatinine Clearance 45 ml/min; Glucose 129 mg/dl (70-99); Magnesium 1.5 mg/dl (1.6-2.3); Potassium 3.9 mmol/L (3.5-5.1); Sodium 136 mmol/L (135-145); eGFR 57.31
[2025-06-15] MEDS: NOVOLOG FLEXPEN 3 UNITS SC ×3 (10:05→17:00)
[2025-06-15 11:00] VITALS: BP 136/53
--- NOTE | 2025-06-15 11:35 | W.PN.HOSP.TC ---
Today's Communication/Plan
-
replete mag
ECHO pending
plan for SNF later today
Assessment / Plan
Assessment / Plan
Gen: NAD, AAOx3.
Eyes: EOMI, PERRLA, no scleral icterus.
Neck: supple.
CV: sourav, reg rhythm, +S1/S2, no m/r/g.
Resp: CTAB, no rales, wheezes, or rhonchi.
Abd: remains +BS, soft, NT, ND
Skin: No rashes.
MSK: continues to remain R knee without effusion, induration, erythema, or warmth.
Neuro: CN 2-12 intact, non-focal.
Psych: Normal mood and affect.
R knee x-ray: No acute fracture or dislocation. Severe tricompartmental osteoarthrosis with marked joint space narrowing in all 3 compartments and marginal osteophytes. Small suprapatellar joint effusion. Vascular calcifications.
RLE peripheral venous U/S: No sonographic evidence for right lower extremity deep venous thrombosis.
R hand Xray: No acute fracture or dislocation. The joint spaces are maintained. The soft tissues are unremarkable.
Permanent atrial fibrillation:
-note, pt had missed doses of BB and went into SVT 11/29PM
-BB resumed, HR now controlled
-cont Eliquis
-no further events on tele
-ECHO pending
R posterior thigh pain:
-likely due to severe tricompartmental osteoarthrosis
-with resulting ambulatory dysfxn
-PT/OT
-pain control
-recs to continue to follow up with her outpatient pain doctor.
Other problems:
Morbid obesity due to excess calories: Encourage weight loss, affects all aspects of care
Essential HTN: cont BB/ACEi/HCTZ
HLD: cont statin
Hypothyroidism: cont Levoxyl
CKD3a
DM2: a1c 6.9%, SSI/accuchecks
GERD: cont PPI
Depression: cont Zoloft
Chronic constipation:cont Linzess
ANNE
Hypomag-replete IV
FULL/Eliquis
PT recs SNF. CM aware.
Anticipated Discharge: Today
Subjective/Interval History
-
Date of Service: June 15, 2025
no overnight events
intermittent R KNEE pain
Objective Data
-
Labs:
Laboratory Results
06/15/25
09:05
Sodium 136
Potassium 3.9
Chloride 102
Carbon Dioxide 30
BUN 30 H
Creatinine 1.0
Glucose 129 H
Calcium 9.3
Vital Signs:
Vital Signs
Temp Pulse Resp BP Pulse Ox
98.2 F 58 16 136/53 96
06/15/25 11:00 06/15/25 11:00 06/15/25 11:00 06/15/25 11:00 06/15/25 11:00
I&O
06/14/25 06/15/25 06/16/25
06:59 06:59 06:59
Intake Total 1200 / 1200 1680 / 1680
Balance 1200 / 1200 1680 / 1680
[2025-06-15] MEDS: MAGNESIUM SULFATE 50 IV (12:20)
[2025-06-15 12:36] LABS: Glucose - Point of Care 154 mg/dl (70-99)
[2025-06-15] MEDS: NOVOLOG FLEXPEN-LOW RESISTANCE 1 UNITS SC ×2 (14:05→17:01)
[2025-06-15 15:00] VITALS: BP 138/90
--- NOTE | 2025-06-15 16:09 | CM ---
Pt has been accepted for transfer to [facility] tomorrow pending ECHO results. Pt's daughter aware and agreeable to transfer.
CM to coordinate transport once discharge order has been placed.
[2025-06-15 16:41] LABS: Glucose - Point of Care 159 mg/dl (70-99)
[2025-06-15] MEDS: LIPITOR 10 MG PO (17:00)
[2025-06-15 19:00] VITALS: BP 107/39
[2025-06-15 21:18] LABS: Glucose - Point of Care 141 mg/dl (70-99)
[2025-06-15 23:00] VITALS: BP 130/52
[2025-06-16] MEDS: TYLENOL 1000 MG PO (01:15)
[2025-06-16 03:00] VITALS: BP 132/53
[2025-06-16] MEDS: SYNTHROID 125 MCG PO (05:31)
[2025-06-16 07:56] LABS: Glucose - Point of Care 151 mg/dl (70-99)
[2025-06-16 08:16] VITALS: BP 136/60
--- NOTE | 2025-06-16 09:09 | W.PN.HOSP.TC ---
Today's Communication/Plan
-
dc to snf
Assessment / Plan
Assessment / Plan
Gen: NAD, AAOx3.
Eyes: EOMI, no scleral icterus.
Neck: supple.
CV: sourav, reg rhythm, +S1/S2, no m/r/g.
Resp: CTAB, no rales, wheezes, or rhonchi.
Abd: remains +BS, soft, NT, ND
Skin: No rashes.
MSK: continues to remain R knee without effusion, induration, erythema, or warmth.
Neuro: CN 2-12 intact, non-focal.
Psych: Normal mood and affect.
R knee x-ray: No acute fracture or dislocation. Severe tricompartmental osteoarthrosis with marked joint space narrowing in all 3 compartments and marginal osteophytes. Small suprapatellar joint effusion. Vascular calcifications.
RLE peripheral venous U/S: No sonographic evidence for right lower extremity deep venous thrombosis.
R hand Xray: No acute fracture or dislocation. The joint spaces are maintained. The soft tissues are unremarkable.
Permanent atrial fibrillation:
-seems wtih baseline bradycardia
-note, pt had missed doses of BB and went into SVT 11/29PM. No further events noted on tele.
-BB resumed, HR now controlled
-cont Eliquis
-no further events on tele
-ECHO noted with EF of 60-65%.
R posterior thigh pain:
-likely due to severe tricompartmental osteoarthrosis
-with resulting ambulatory dysfxn
-PT/OT recs SNF
-pain control
-recs to continue to follow up with her outpatient pain doctor.
Other problems:
Morbid obesity due to excess calories: Encourage weight loss, affects all aspects of care
Essential HTN: cont BB/ACEi/HCTZ
HLD: cont statin
Hypothyroidism: cont Levoxyl
CKD3a
DM2: a1c 6.9%, SSI/accuchecks
GERD: cont PPI
Depression: cont Zoloft
Chronic constipation:cont Linzess
ANNE
Hypomag-repleted
FULL/Eliquis
PT recs SNF. CM aware.
More than 30 minutes spent in discharge including
Final examination of the patient
Summarizing hospital stay
Instructions for continuing care to all relevant caregivers
Preparation of discharge records, prescriptions, and referral forms
Total time spent (in minutes): 55
Anticipated Discharge: Today
Subjective/Interval History
-
Date of Service: June 16, 2025
this morning pt states she is feeling better
Objective Data
-
Vital Signs:
Vital Signs
Temp Pulse Resp BP Pulse Ox
97.3 F 51 15 136/60 100
06/16/25 08:16 06/16/25 08:16 06/16/25 08:16 06/16/25 08:16 06/16/25 08:16
I&O
06/15/25 06/16/25 06/17/25
06:59 06:59 06:59
Intake Total 1680 / 1680 1300 / 1300
Balance 1680 / 1680 1300 / 1300
--- NOTE | 2025-06-16 09:13 | W.DCSUMMARY ---
Discharge Summary
Discharge Data
Date of Admission: 06/13/25
Date of Discharge: 06/16/25
-
Pending Results: No
Hospital Course
79-year-old female past medical history of atrial fibrillation, morbid obesity, hypertension, hyperlipidemia, hypothyroidism, CKD, diabetes mellitus, mood disorder, chronic constipation, ANNE, osteoarthritis who is presenting with ambulatory
dysfunction. Patient was complaining of right posterior thigh pain. X-rays were negative for acute fractures. Physical and Occupational Therapy evaluated patient. Tylenol and ice pack was recommended. Patient with improvement in pain of her
right knee./posterior thigh. Patient had episode of SVT which was deemed as beta-bentley was held. Once patient was restarted on home regimen of medication no further episodes were noted on telemetry. Echocardiogram was checked which showed EF of
60 to 65%. Patient was eval by physical and Occupational Therapy and will be discharged to group home facility.
Discharge Plan
-
Patient Disposition: Half-Way/SNF
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
Hypomagnesemia
SVT
Condition: Fair
Diet: Diabetic, Carb Controlled
Activity: As tolerated
Driving Restrictions: Not until seen by your Dr
Other Services: VN, PT and OT
Referrals:
David Preston DO [Family Provider, [facility]] - in less than 1 week
Prescriptions:
New
Mag Glycinate 100 mg tablet
100 mg PO HS Qty: 10 0RF
Continued
sertraline 100 mg Tablet
100 mg PO DAILY
levothyroxine 125 mcg Tablet
125 mcg PO DAILY
lovastatin 20 mg Tablet
20 mg PO QPM
oxybutynin chloride 5 mg Tablet
5 mg PO DAILY
Linzess 145 mcg Capsule
145 mcg PO DAILY
Eliquis 5 mg Tablet
5 mg PO BID
vit C,F-Ci-inooh-lutein-zeaxan 250-90-40-1 mg Capsule
1 tab PO DAILY
insulin aspart U-100 [Novolog FlexPen U-100 Insulin] 100 unit/mL (3 mL) Insulin Pen
3 units SC AC Qty: 0 0RF
hydrochlorothiazide 25 mg Tablet
25 mg PO DAILY
lisinopril 40 mg Tablet
40 mg PO DAILY
Mounjaro 5 mg/0.5 mL Pen Injector
5 mg SC IRBY
vitamin D3-vitamin K2 125-90 mcg Capsule
1 cap PO DAILY
lidocaine [Aspercreme (lidocaine)] 4 % adhesive patch,medicated
1 patch topical DAILY
polyethylene glycol 3350 [Miralax] 17 gram powder in packet
17 g PO DAILYPRN PRN (Reason: constipation)
acetaminophen [Pain Reliever ES(acetaminophn)] 500 mg tablet
1,000 mg PO Q8HPRN PRN (Reason: mild pain)
pantoprazole 40 mg tablet,delayed release (DR/EC)
40 mg PO BID
metoprolol succinate 25 mg tablet extended release 24 hr
25 mg PO BID
Discharge Orders:
Discharge Patient (As Directed); Ordered 06/16/25
Ordered By: Arnold Flynn
Discharge Date and Time
Print Language: LATVIAN
[2025-06-16] MEDS: ORETIC 25 MG PO (09:17)
[2025-06-16] MEDS: ELIQUIS 5 MG PO (09:17)
[2025-06-16] MEDS: ZOLOFT 100 MG PO (09:17)
[2025-06-16] MEDS: OCUVITE SOFTGEL 1 CAP PO (09:17)
[2025-06-16] MEDS: PROTONIX 40 MG PO (09:18)
[2025-06-16] MEDS: TOPROL XL 25 MG PO (09:18)
[2025-06-16] MEDS: ZESTRIL 40 MG PO (09:18)
[2025-06-16] MEDS: NOVOLOG FLEXPEN 3 UNITS SC (09:26)
[2025-06-16] MEDS: NOVOLOG FLEXPEN-LOW RESISTANCE 1 UNITS SC (09:26)
[2025-06-16] MEDS: DITROPAN 5 MG PO (09:28)
--- NOTE | 2025-06-16 09:30 | PTCARENOTE ---
pt transerred oob with assist x1 to chair for breakfast, denies pain, vss will continue to monitor.
--- NOTE | 2025-06-16 10:18 | CM ---
CM following for discharge to [facility] when medically cleared. Bed is available for transfer today. Dr. Flynn aware of bed availability.
Pt's daughter is aware of plan for transfer today; she is a teacher and is not available via phone, but aware of plan for transfer to [facility] today.
CM will call daughter and leave a voicemail message for her regarding timing of ambulance transfer to [facility] when known.
[facility] Report: [phone]
[facility]
--- NOTE | 2025-06-16 11:30 | PTCARENOTE ---
pt refused 1130 accucheck, verbalized that she wanted to wait to eat lunch at [facility]
[2025-06-16 12:02] VITALS: BP 143/59
== END 2025-06-16 14:23 | DRG 554 ==
LOC: 3 WEST ACU 14:12
PROVIDERS: Internal Medicine; Nurse Practitioner Family; Physician Assistant; ADMITTING PHYSICIAN Hospitalist; ATTENDING PHYSICIAN Hospitalist; EMERGENCY PHYSICIAN Emergency Medicine; FAMILY PHYSICIAN Family Medicine
DX: M17.11 Unilateral primary osteoarthritis, right knee (principal); I48.21 Permanent atrial fibrillation; Z68.41 Body mass index [BMI] 40.0-44.9, adult; I47.10 Supraventricular tachycardia, unspecified; E11.22 Type 2 diabetes mellitus with diabetic chronic kidney disease; E03.9 Hypothyroidism, unspecified; E78.00 Pure hypercholesterolemia, unspecified; F32.A Depression, unspecified; N18.31 Chronic kidney disease, stage 3a; I12.9 Hypertensive chronic kidney disease with stage 1 through stage 4 chronic kidney disease, or unspecified chronic kidney disease; K21.9 Gastro-esophageal reflux disease without esophagitis; K44.9 Diaphragmatic hernia without obstruction or gangrene; G47.33 Obstructive sleep apnea (adult) (pediatric); M65.331 Trigger finger, right middle finger; K59.09 Other constipation; M71.21 Synovial cyst of popliteal space [Baker], right knee; E83.42 Hypomagnesemia; E66.01 Morbid (severe) obesity due to excess calories; Z60.2 Problems related to living alone; Z79.01 Long term (current) use of anticoagulants; Z87.891 Personal history of nicotine dependence; Z79.890 Hormone replacement therapy; Z79.4 Long term (current) use of insulin; Z88.5 Allergy status to narcotic agent; Z88.8 Allergy status to other drugs, medicaments and biological substances; Z88.6 Allergy status to analgesic agent; Z88.1 Allergy status to other antibiotic agents; Z91.040 Latex allergy status
CPT/HCPCS: 73120; 73564; 80048; 80053; 82962; 83036; 83735; 85025; 85027; 93005; 93306; 93971; 97110; 97116; 97162; 97166; 97530; 97535; 99285

== ENCOUNTER → 2025-06-19 10:17 | Outpatient (REF) | payer OTHER, MEDICARE, BC, SELFPAY ==
[2025-06-19 11:35] LABS: Hematocrit 34.9 % (37.0-47.0); Hemoglobin 10.7 g/dL (12.0-16.0); Mean Corp Hgb Conc. 30.7 g/dL (33.0-37.0); Mean Corpuscular Volume 87.0 fL (81.0-99.0); Nucleated Red Blood Cells % 0 %; Platelet Count 215 10^3/uL (130-400); Red Cell Dist. Width 13.1 % (11.5-14.5)
[2025-06-19 11:47] LABS: Blood Urea Nitrogen 36 mg/dl (7-17); Calcium 8.8 mg/dl (8.4-10.2); Carbon Dioxide 30 mmol/L (22-30); Chloride 102 mmol/L (98-107); Glucose 133 mg/dl (70-99); Potassium 4.2 mmol/L (3.5-5.1); Sodium 132 mmol/L (135-145); eGFR 57.31
== END ==
LOC: OLABP 10:17
PROVIDERS: ATTENDING PHYSICIAN Family Medicine
DX: M17.11 Unilateral primary osteoarthritis, right knee (principal); E03.9 Hypothyroidism, unspecified; E11.29 Type 2 diabetes mellitus with other diabetic kidney complication; E66.01 Morbid (severe) obesity due to excess calories; E78.00 Pure hypercholesterolemia, unspecified; F33.1 Major depressive disorder, recurrent, moderate; G47.33 Obstructive sleep apnea (adult) (pediatric); I10 Essential (primary) hypertension; I48.21 Permanent atrial fibrillation; K21.9 Gastro-esophageal reflux disease without esophagitis; M25.561 Pain in right knee; M32.9 Systemic lupus erythematosus, unspecified; M71.21 Synovial cyst of popliteal space [Baker], right knee; N18.31 Chronic kidney disease, stage 3a; N39.41 Urge incontinence; R26.2 Difficulty in walking, not elsewhere classified; Z79.01 Long term (current) use of anticoagulants
CPT/HCPCS: 36415; 80048; 85025

== ENCOUNTER → 2025-06-23 12:36 | Outpatient (REF) | payer OTHER, MEDICARE, BC, SELFPAY ==
[2025-06-23 15:44] LABS: Blood Urea Nitrogen 29 mg/dl (7-17); Calcium 9.2 mg/dl (8.4-10.2); Carbon Dioxide 29 mmol/L (22-30); Chloride 103 mmol/L (98-107); Glucose 112 mg/dl (70-99); Potassium 4.3 mmol/L (3.5-5.1); Sodium 136 mmol/L (135-145); eGFR 57.31
== END ==
LOC: OLABP 12:36
PROVIDERS: ATTENDING PHYSICIAN Family Medicine
DX: I10 Essential (primary) hypertension (principal); K21.9 Gastro-esophageal reflux disease without esophagitis; M25.561 Pain in right knee; R26.2 Difficulty in walking, not elsewhere classified
CPT/HCPCS: 36415; 80048